=== PATIENT | female | born 1965 | race Caucasian/White ===

== ENCOUNTER 2018-03-03 22:42 | Emergency (ER) | payer OTHER ==
[~2018-03-03] VITALS: Ht 157.5 cm; Wt 81.6 kg
[~2018-03-03 22:42] MED LIST: AMIT50TA PO; EFAV1TAB PO
[2018-03-03 23:33] LABS: BILIRUBIN,URINE NEGATIVE (NEG); CLARITY,URINE CLEAR; COLOR,URINE YELLOW; NITRITE,URINE NEGATIVE (NEG); PH,URINE 6.5; PROTEIN,URINE NEGATIVE (NEG-TRACE); UROBILINOGEN,URINE 0.2 mg/dL (0.2 mg/dL)
[2018-03-03 23:38] LABS: BACTERIA,URINE FEW /HPF (0-FEW); RBC,URINE RARE /HPF (0-2); SQUAMOUS EPITHELIAL CELL,UR MOD /LPF
[2018-03-03 23:38] LABS: BASO # 0.1 x10^3/uL (0.0-0.2); BASO % 1 % (0-3); EOS # 0.2 x10^3/uL (0.0-0.7); EOS % 2 % (0-3); HEMATOCRIT 39.7 % (36.0-47.0); LYMPH # 3.5 x10^3/uL (1.0-4.8); LYMPH % 39 % (24-48); MEAN CORPUSCULAR HEMOGLOBIN 34 pg (25-35); MEAN CORPUSCULAR HGB CONC 35 g/dL (31-37); MEAN CORPUSCULAR VOLUME 96 fL (79-100); MONO # 0.8 x10^3/uL (0.0-1.1); MONO % 9 % (0-9); NEUT # 4.3 x10^3uL (1.8-7.7); NEUT % 49 % (31-73); PLATELET COUNT 228 x10^3/uL (140-400); RED BLOOD COUNT 4.15 x10^6/uL (3.50-5.40); RED CELL DISTRIBUTION WIDTH 13.8 % (11.5-14.5); WHITE BLOOD COUNT 8.9 x10^3/uL (4.0-11.0)
[2018-03-03 23:45] LABS: CALCIUM 9.2 mg/dL (8.5-10.1); CREATININE 1.2 mg/dL (0.6-1.0); GFR 47.2; POTASSIUM 3.6 mmol/L (3.5-5.1)
[2018-03-03] MEDS ORDERED: ONDANSETRON PF 4 MG/2 ML VIAL. IV ONE (23:45)
[2018-03-03] MEDS ORDERED: CONTRAST GIVEN. MC PRN (23:45)
[2018-03-03] MEDS ORDERED: IV NORMAL SALINE 1000ML BAG 1,000 ML IV ONE (23:45)
[2018-03-03] MEDS ORDERED: MORPHINE SULFATE 4 MG/ML VIAL. IV ONE (23:45)
[2018-03-03 23:52] LABS: ALBUMIN 3.9 g/dL (3.4-5.0); ALBUMIN/GLOBULIN RATIO 1.1 (1.0-1.7); TOTAL BILIRUBIN 0.6 mg/dL (0.2-1.0); TOTAL PROTEIN 7.5 g/dL (6.4-8.2)
--- NOTE | 2018-03-04 00:26 | RAD ---
CT abdomen and pelvis with contrast HISTORY: Right lower quadrant abdominal pain. TECHNIQUE: Helical CT imaging of the abdomen and pelvis with 60 mL Omnipaque 300 intravenous contrast. Abdomen findings: Mild linear atelectasis at the lung bases. Lower lumbar disc bulges and osteophytes with spinal canal and neural foraminal stenoses. L1 vertebral body hemangioma. Dilation of the bile ducts the proximal common bile duct diameter 13 mm with mild tapering distally, this most likely is related to cholecystectomy. Liver, kidneys, adrenals, pancreas and spleen are unremarkable. Liver, spleen, kidneys, adrenal glands, pancreas are unremarkable. Moderate volume of stool. No bowel obstruction. The appendix is negative. No abdominal fluid or adenopathy. Pelvis findings: Hysterectomy. Bilateral adnexal cystic lesions the largest is oblong on the right measuring 4 cm. No pelvic fluid or adenopathy. The bladder wall is subjectively mildly thickened for its degree of distention. Rectum and bones are unremarkable. IMPRESSION: 1. Mild bladder wall thickening could be muscular hypertrophy or mild imaging changes of inflammation from cystitis. 2. The appendix is negative. 3. Bilateral adnexal cystic lesions largest on the right measuring 4 cm. These could be further assessed by outpatient pelvic sonography. 4. Mild bile duct dilation likely related to cholecystectomy. Exposure: One or more of the following individualized dose reduction techniques were utilized for this examination: 1. Automated exposure control 2. Adjustment of the mA and/or kV according to patient size 3. Use of iterative reconstruction technique Electronically signed by: Mati Ag MD (03/04/2018 12:23 AM) [facility]
[2018-03-04] MEDS ORDERED: IOHEXOL 300 MG/ML 100ML VIAL. IV ONE (00:30)
[2018-03-04] MEDS ORDERED: NITR100C62 PO (00:38)
--- NOTE | 2018-03-04 00:48 | PHYS DOC ---
Past Medical History Past Medical History: HIV, Hypertension, Migraines Past Surgical History: Cholecystectomy, Hysterectomy, Tonsillectomy, Other Additional Past Surgical Histo: RIGHT SHOULDER 08/2016 Additional Information: STOPPED X1 MO Alcohol Use: Rarely Drug Use: None Adult General Chief Complaint Chief Complaint: ABDOMINAL PAIN HPI HPI Patient is a 52 year old female presenting with right lower abdominal pain described as burning and sharp comes and goes feels it also in the right groin area. She thinks it is worse with particular types of movement. No fever sometimes has nausea no dysuria no back pain she has HIV but her CD4 count last one was 1000 she takes antiretroviral therapy. Review of Systems Review of Systems Constitutional: Denies fever or chills [] Eyes: Denies change in visual acuity, redness, or eye pain [] HENT: Denies nasal congestion or sore throat [] Respiratory: Denies cough or shortness of breath [] Musculoskeletal: Denies back pain or joint pain [] Integument: Denies rash or skin lesions [] Neurologic: Denies headache, focal weakness or sensory changes [] Endocrine: Denies polyuria or polydipsia [] All other systems were reviewed and found to be within normal limits, except as documented in this note. Current Medications Current Medications Current Medications Medications (Trade) Dose Ordered Sig/Donal Start Time Stop Time Status Last Admin Dose Admin Info (CONTRAST GIVEN -- Rx MONITORING) 1 each PRN DAILY PRN 03/03/18 23:45 03/05/18 23:44 Iohexol (Omnipaque 300 Mg/ml) 75 ml 1X ONCE 03/04/18 00:30 03/04/18 00:31 DC 03/04/18 00:05 60 ML Morphine Sulfate (Morphine Sulfate) 4 mg 1X ONCE 03/03/18 23:45 03/03/18 23:46 DC 03/03/18 23:47 4 MG Ondansetron HCl (Zofran) 4 mg 1X ONCE 03/03/18 23:45 03/03/18 23:46 DC 03/03/18 23:45 4 MG Sodium Chloride 1,000 ml @ 1,000 mls/hr 1X ONCE 03/03/18 23:45 03/04/18 00:44 DC 03/03/18 23:45 1,000 MLS/HR Allergies Allergies Allergies Coded Allergies Type Severity Reaction Last Updated Verified Penicillins Allergy Intermediate 07/12/14 No Sulfa (Sulfonamide Antibiotics) Allergy Intermediate 07/12/14 No Tetracyclines Allergy Intermediate Hives 06/23/15 Yes doxycycline Allergy Intermediate Hives 06/23/15 Yes levofloxacin Adverse Reaction Intermediate Nausea and Vomiting 06/23/15 Yes Physical Exam Physical Exam Constitutional: Well developed, well nourished, no acute distress, non-toxic appearance. [] HENT: Normocephalic, atraumatic, bilateral external ears normal, oropharynx moist, no oral exudates, nose normal. [] Eyes: PERRLA, EOMI, conjunctiva normal, no discharge. [] Neck: Normal range of motion, no tenderness, supple, no stridor. [] Pulmonary: Normal respiratory effort no increased work of breathing no obvious chest wall trauma Abdomen: Bowel sounds normal, soft, right lower quadrant and also right inguinal region tenderness, no masses, no pulsatile masses. [] Skin: Warm, dry, no erythema, no rash. [] Back: No tenderness, no CVA tenderness. [] Extremities: No tenderness, no cyanosis, no clubbing, ROM intact, no edema. [] Neurologic: Alert and oriented X 3, normal motor function, normal sensory function, no focal deficits noted. [] Psychologic: Affect normal, judgement normal, mood normal. [] Current Patient Data Vital Signs Vital Signs Date Time Temp Pulse Resp B/P (MAP) Pulse Ox O2 Delivery O2 Flow Rate FiO2 03/03/18 23:47 18 95 03/03/18 22:50 98.1 99 127/77 (94) Room Air 98.1 Lab Values Laboratory Tests Test 03/03/18 23:13 03/03/18 23:16 Urine Collection Type Unknown Urine Color Yellow Urine Clarity Clear Urine pH 6.5 Urine Specific Earth 1.020 Urine Protein Negative mg/dL (NEG-TRACE) Urine Glucose (UA) Negative mg/dL (NEG) Urine Ketones (Stick) Negative mg/dL (NEG) Urine Blood Negative (NEG) Urine Nitrite Negative (NEG) Urine Bilirubin Negative (NEG) Urine Urobilinogen Dipstick 0.2 mg/dL (0.2 mg/dL) Urine Leukocyte Esterase Trace (NEG) Urine RBC Rare /HPF (0-2) Urine WBC 1-4 /HPF (0-4) Urine Squamous Epithelial Cells Mod /LPF Urine Bacteria Few /HPF (0-FEW) Urine Mucus Mod /LPF White Blood Count 8.9 x10^3/uL (4.0-11.0) Red Blood Count 4.15 x10^6/uL (3.50-5.40) Hemoglobin 14.0 g/dL (12.0-15.5) Hematocrit 39.7 % (36.0-47.0) Mean Corpuscular Volume 96 fL (79-100) Mean Corpuscular Hemoglobin 34 pg (25-35) Mean Corpuscular Hemoglobin Concent 35 g/dL (31-37) Red Cell Distribution Width 13.8 % (11.5-14.5) Platelet Count 228 x10^3/uL (140-400) Neutrophils (%) (Auto) 49 % (31-73) Lymphocytes (%) (Auto) 39 % (24-48) Monocytes (%) (Auto) 9 % (0-9) Eosinophils (%) (Auto) 2 % (0-3) Basophils (%) (Auto) 1 % (0-3) Neutrophils # (Auto) 4.3 x10^3uL (1.8-7.7) Lymphocytes # (Auto) 3.5 x10^3/uL (1.0-4.8) Monocytes # (Auto) 0.8 x10^3/uL (0.0-1.1) Eosinophils # (Auto) 0.2 x10^3/uL (0.0-0.7) Basophils # (Auto) 0.1 x10^3/uL (0.0-0.2) Sodium Level 139 mmol/L (136-145) Potassium Level 3.6 mmol/L (3.5-5.1) Chloride Level 100 mmol/L (98-107) Carbon Dioxide Level 30 mmol/L (21-32) Anion Gap 9 (6-14) Blood Urea Nitrogen 14 mg/dL (7-20) Creatinine 1.2 mg/dL (0.6-1.0) H Estimated GFR (Cockcroft-Gault) 47.2 BUN/Creatinine Ratio 12 (6-20) Glucose Level 103 mg/dL (70-99) H Calcium Level 9.2 mg/dL (8.5-10.1) Total Bilirubin 0.6 mg/dL (0.2-1.0) Aspartate Amino Transferase (AST) 27 U/L (15-37) Alanine Aminotransferase (ALT) 53 U/L (14-59) Alkaline Phosphatase 114 U/L (46-116) Total Protein 7.5 g/dL (6.4-8.2) Albumin 3.9 g/dL (3.4-5.0) Albumin/Globulin Ratio 1.1 (1.0-1.7) Lipase 85 U/L (73-393) Laboratory Tests 03/03/18 23:16 Laboratory Tests 03/03/18 23:16 EKG EKG [] Radiology/Procedures Radiology/Procedures [] Impressions: IMPRESSION: 1. Mild bladder wall thickening could be muscular hypertrophy or mild imaging changes of inflammation from cystitis. 2. The appendix is negative. 3. Bilateral adnexal cystic lesions largest on the right measuring 4 cm. These could be further assessed by outpatient pelvic sonography. 4. Mild bile duct dilation likely related to cholecystectomy. Exposure: One or more of the following individualized dose reduction techniques were utilized for this examination: 1. Automated exposure control 2. Adjustment of the mA and/or kV according to patient size 3. Use of iterative reconstruction technique Electronically signed by: Mati Ag MD (03/04/2018 12:23 AM) [facility] DICTATED and SIGNED BY: MATI AG MD DATE: 03/04/18 001 Course & Med Decision Making Course & Med Decision Making Pertinent Labs and Imaging studies reviewed. (See chart for details) []52-year-old female history of HIV on antiretroviral therapy presenting with right lower quadrant abdominal pain for the last couple of days there was some tenderness around the McBurney's point the CT scan was normal no appendicitis. Urinalysis was really not that impressive but CT scan showed possible findings of cystitis so given her history we will give her prescription for antibiotics Macrobid was given given her allergic profile. Patient is able to range the hip and is neuro intact I don't think that there is any acute musculoskeletal emergency going on. Dragon Disclaimer Dragon Disclaimer This electronic medical record was generated, in whole or in part, using a voice recognition dictation system. Departure Departure Impression: Primary Impression: Cystitis Disposition: 01 HOME, SELF-CARE Condition: STABLE Patient Instructions: Urinary Tract Infection, [id number] Scripts Nitrofurantoin Monohyd/M-Cryst (MACROBID 100 MG CAPSULE) 100 Mg Capsule 1 CAP PO BID, #14 CAP Prov: ERICK MALIK MD 03/04/18 ERICK MALIK MD Mar 04, 2018 00:48
[2018-03-04 01:42] VITALS: BP 105/56
[2018-03-04] MEDS ORDERED: IOHEXOL 300 MG/ML 100ML VIAL. ONE (04:32)
== END 2018-03-04 01:47 | disposition home or self-care (01) ==
LOC: ER 22:42
DX: N30.90 Cystitis, unspecified without hematuria (principal); G43.909 Migraine, unspecified, not intractable, without status migrainosus; I10 Essential (primary) hypertension; Z90.49 Acquired absence of other specified parts of digestive tract; Z90.89 Acquired absence of other organs; Z88.0 Allergy status to penicillin; Z88.2 Allergy status to sulfonamides; Z88.1 Allergy status to other antibiotic agents
CPT/HCPCS: 36415; 74177; 80053; 81001; 83690; 85025; 87086; 96374; 96375; 99285; J2270; J2405; J7030; Q9967

== ENCOUNTER 2018-09-08 21:16 | Emergency (ER) | payer BC, OTHER ==
[~2018-09-08] VITALS: Ht 162.6 cm; Wt 81.6 kg
[~2018-09-08 21:16] MED LIST changes: +NITR100C62 PO
[2018-09-08 21:20] VITALS: BP 158/94
[2018-09-08] MEDS ORDERED: DIPHTH,PERTUSS(ACELL),TET TOX 0.5 ML DISP.SYRIN. VAX IM ONE (22:45)
--- NOTE | 2018-09-08 22:45 | PHYS DOC ---
Past Medical History Past Medical History: HIV, Hypertension, Migraines (RAMESH ASH APRN) Past Surgical History: Cholecystectomy, Hysterectomy, Tonsillectomy, Other Additional Past Surgical Histo: RIGHT SHOULDER 08/2016 (RAMESH ASH APRN) Alcohol Use: Rarely Drug Use: None (RAMESH ASH APRN) Adult General Chief Complaint Chief Complaint: LACERATION/AVULSION HPI HPI Patient is a 52 year old female who presents to the emergency department with complaints of a laceration to the midportion of her left cortés. Patient states she was opening the oven door when she dropped it and it scratched the front of her left cortés. She denies any numbness, tingling, or weakness of the affected extremity. She is unsure of when her last tetanus immunization was. Currently she denies any pain (RAMESH ASH APRN) Review of Systems Review of Systems Constitutional: Denies fever or chills [] Musculoskeletal: Denies back pain or joint pain [] Integument: Denies rash; see history of present illness Neurologic: Denies focal weakness or sensory changes [] (RAMESH ASH APRN) Current Medications Current Medications Current Medications Medications (Trade) Dose Ordered Sig/Donal Start Time Stop Time Status Last Admin Dose Admin Diphtheria/ Tetanus/Acell Pertussis (Boostrix) 0.5 ml ONCE ONCE 09/08/18 22:45 09/08/18 22:46 DC 09/08/18 23:11 0.5 ML (ERICK MALIK MD) Allergies Allergies Allergies Coded Allergies Type Severity Reaction Last Updated Verified Penicillins Allergy Intermediate 07/12/14 No Sulfa (Sulfonamide Antibiotics) Allergy Intermediate 07/12/14 No Tetracyclines Allergy Intermediate Hives 06/23/15 Yes doxycycline Allergy Intermediate Hives 06/23/15 Yes levofloxacin Adverse Reaction Intermediate Nausea and Vomiting 06/23/15 Yes (ERICK MALIK MD) Physical Exam Physical Exam Constitutional: Well developed, well nourished, no acute distress, non-toxic appearance. [] HENT: Normocephalic, atraumatic, bilateral external ears normal, nose normal. [ ] Eyes: conjunctiva normal, no discharge. [] Neck: Normal range of motion, no stridor. [] Lungs & Thorax: Respirations even and unlabored Skin: Warm, dry, no erythema, no rash; 7 cm avulsion/laceration noted to anterior aspect of left lower leg, no active bleeding. [] Extremities: No tenderness, no cyanosis, ROM intact, no edema. [] Neurologic: Alert and oriented X 3, normal motor function, normal sensory function, no focal deficits noted. [] Psychologic: Affect normal, judgement normal, mood normal. [] (RAMESH ASH APRN) Current Patient Data Vital Signs Vital Signs Date Time Temp Pulse Resp B/P (MAP) Pulse Ox O2 Delivery O2 Flow Rate FiO2 09/08/18 21:20 97.9 95 18 158/94 (115) 97 Room Air 97.9 (ERICK MALIK MD) EKG EKG [] (RAMESH ASH APRN) Radiology/Procedures Radiology/Procedures Avulsion/Laceration Repair by me: Location: Anterior left lower leg Tendon/Joint/Nerves: No injury Foreign body: None detected after copious irrigation and exploration, wound is noted to be superficial Technique: Dermabond skin adhesive to superior portion of wound Complexity: No subcutaneous sutures/mucosal repair/edge excision Post Closure Length: 7 cm Patient's bleeding was easily controlled in the department and there is no indication of anemia. No evidence of compartment syndrome, neurologic injury, vascular injury, open joint, tendon laceration, or foreign body. Patient is appropriate for outpatient follow up. (RAMESH ASH APRN) Course & Med Decision Making Course & Med Decision Making Pertinent Labs and Imaging studies reviewed. (See chart for details) dx: Avulsion left lower extremity, need for tetanus immunization The patient's avulsion/laceration was cleansed with surgical scrub and normal saline. The wound was noted to be superficial and more of an avulsion versus laceration. Dermabond was used to close the superior portion of the avulsion. A dressing was applied by nursing staff. Patient was given instructions on how to care for the avulsion. Follow-up with primary care doctor if symptoms persist, return to ER if symptoms worsen.Patient verbalized an understanding of home care , medications, follow-up, and return to ED instructions and was in agreement with the plan of care. [] (RAMESH ASH APRN) Course & Med Decision Making Staff Physician Addendum: I was working in the ER during the course of this patient's visit. I was available for consultation as needed, but I was not directly involved in the care of this patient. (ERICK MALIK MD) Dragon Disclaimer Dragon Disclaimer This electronic medical record was generated, in whole or in part, using a voice recognition dictation system. (RAMESH ASH APRN) Departure Departure Impression: Primary Impression: Avulsion of skin of left lower leg Additional Impression: Need for DTaP vaccination Disposition: 01 HOME, SELF-CARE Condition: STABLE Referrals: UNKNOWN PCP NAME (PCP) Patient Instructions: Deep Skin Avulsion, Tissue Adhesive Wound Care, Easy-to- Read Additional Instructions: Keep area clean and dry. May apply antibiotic ointment to area if needed. Watch for redness, warmth, or drainage. Follow up with your primary care doctor if symptoms persist, return to the ER if symptoms worsen. Tylenol or ibuprofen as needed for pain. Problem Qualifiers Primary Impression: Avulsion of skin of left lower leg Encounter type: initial encounter Qualified Codes: S81.802A - Unspecified open wound, left lower leg, initial encounter RAMESH ASH APRN Sep 08, 2018 22:45 ERICK MALIK MD Sep 14, 2018 06:37
== END 2018-09-08 23:52 | disposition home or self-care (01) ==
LOC: ER 21:16
DX: S81.812A Laceration without foreign body, left lower leg, initial encounter (principal); I10 Essential (primary) hypertension; G43.909 Migraine, unspecified, not intractable, without status migrainosus; Z90.49 Acquired absence of other specified parts of digestive tract; Z90.710 Acquired absence of both cervix and uterus; Z90.89 Acquired absence of other organs; Z88.0 Allergy status to penicillin; Z88.2 Allergy status to sulfonamides; Z88.1 Allergy status to other antibiotic agents; W20.8XXA Other cause of strike by thrown, projected or falling object, initial encounter; Y93.89 Activity, other specified; Y92.89 Other specified places as the place of occurrence of the external cause; Y99.8 Other external cause status
CPT/HCPCS: 12002; 90471; 90715; 99283

== ENCOUNTER 2021-07-24 19:31 | Emergency (ER) | payer BC ==
[~2021-07-24] VITALS: Ht 157.5 cm; Wt 86.3 kg
[2021-07-24 21:13] VITALS: BP 141/87
[2021-07-24] MEDS ORDERED: ORPH100T PO (21:42)
--- NOTE | 2021-07-24 21:43 | PHYS DOC ---
Past Medical History Past Medical History: HIV, Hypertension, Migraines Past Surgical History: Cholecystectomy, Hysterectomy, Tonsillectomy, Other Additional Past Surgical Histo: RIGHT SHOULDER 08/2016 Smoking Status: Former Smoker Alcohol Use: Rarely Drug Use: None General Adult EDM: Chief Complaint: BACK PAIN OR INJURY HPI: HPI: Patient is a 55 year old female who presents with acute back pain onset prior to arrival at work. Patient states she was helping to lift 100 pound propane tanks that she had helped refill when her pain started. She denies history of chronic back pain. She denies trauma, saddle anesthesia, bowel or bladder incontinence, IV drug use, paresthesias. Review of Systems: Review of Systems: 12 system ROS negative or noncontributory except as mentioned in HPI. Heart Score: C/O Chest Pain: No Allergies: Allergies: Allergies Coded Allergies Type Severity Reaction Last Updated Verified Penicillins Allergy Intermediate 07/12/14 No Sulfa (Sulfonamide Antibiotics) Allergy Intermediate 07/12/14 No Tetracyclines Allergy Intermediate Hives 06/23/15 Yes doxycycline Allergy Intermediate Hives 06/23/15 Yes levofloxacin Adverse Reaction Intermediate Nausea and Vomiting 06/23/15 Yes Physical Exam: PE: Constitutional: Well developed, well nourished, no acute distress, non-toxic appearance, patient obviously in pain. Neck: Normal range of motion, no stridor. Skin: Warm, dry, no erythema, no rash. Back: No step-off, no midline tenderness, bilateral lumbar paraspinal tenderness and spasm appreciated. Extremities: No tenderness, no cyanosis, no clubbing, ROM intact, no edema. Neurologic: Alert and oriented x4, symmetrical gait, bilateral great toe dorsiflexion 5/5, no focal deficits noted. Current Patient Data: Vital Signs: Vital Signs Date Time Temp Pulse Resp B/P (MAP) Pulse Ox O2 Delivery O2 Flow Rate FiO2 07/24/21 21:13 97.9 99 20 141/87 (105) 99 Room Air 97.9 Course & Med Decision Making: Course & Med Decision Making Pertinent Labs and Imaging studies reviewed. (See chart for details) Patient is a 55-year-old female who presents with low back pain onset prior to arrival at work after doing some heavy lifting. Patient will be treated here in the department with Toradol and lidocaine patch. As she drove herself to the department today, I cannot provide her with a muscle relaxer here in the department. Discussed with patient, and she is comfortable with prescription that she can brain picker and take when she gets home. Patient was given return precautions. She understands and is agreeable to discharge plan. Desmond Disclaimer: Desmond Disclaimer: This electronic medical record was generated, in whole or in part, using a voice recognition dictation system. Departure Departure Impression: Primary Impression: Strain of lumbar paraspinal muscle Qualified Codes: S39.012A - Strain of muscle, fascia and tendon of lower back, initial encounter Disposition: HOME / SELF CARE / HOMELESS Condition: STABLE Referrals: UNKNOWN PCP NAME (PCP) Patient Instructions: Muscle Strain, [id number] Additional Instructions: EMERGENCY DEPARTMENT GENERAL DISCHARGE INSTRUCTIONS Thank you for coming to [facility] Emergency Department (ED) today and trusting us with you care. We trust that you had a positive experience in our Emergency Department. If you wish to speak to the department management, you may call the director at . YOUR FOLLOW UP INSTRUCTIONS ARE FOLLOWS: 1. Follow up with your primary care doctor. If you do not have a primary doctor, please ask for a resource list of physicians or clinics that may be able to assist you with follow up care. 2. The emergency provider has interpreted your imaging studies, if any were ordered. The radiology net application support specialist also reviewed them. If there is a change in the findings, you will be notified in 48 hours when at all possible. 3. If a lab test or culture has been done, your results will be reviewed and you will be notified if you need a change in treatment. 4. Follow instructions verbalized to you and refer to the printouts if needed. ADDITIONAL INSTRUCTIONS AND INFORMATION: 1. Your care today has been supervised by a physician who is specially trained in emergency care. Many problems require more than one evaluation for a complete diagnosis and treatment. We recommend that you schedule your follow up appointment as recommended to ensure complete treatment of you illness or injury. If you are unable to obtain follow up care and continue to have a probl em, or if your condition worsens, we recommend that you return to the ED. 2. We are not able to safely determine your condition over the phone nor are we able to give sound medical advice over the phone. For these safety reasons, if you call for medical advice we will ask you to come to the ED for further evaluation. 3. If you have any questions regarding these discharge instructions please call the ED at . SAFETY INFORMATION: In the interest of safety, wellness, and injury prevention; we encourage you to wear your seat belt, if you smoke; quite smoking, and we encourage family to use a protective helmet for bicycling and other sporting events that present an increased risk for head injury. IF YOUR SYMPTOMS WORSEN OR NEW SYMPTOMS DEVELOP, OR YOU HAVE CONCERNS ABOUT YOUR CONDITION; OR IF YOUR CONDITION WORSENS WHILE YOU ARE WAITING FOR YOUR FOLLOW UP APPOINTMENT; EITHER CONTACT YOUR PRIMARY CARE DOCTOR, THE PHYSICIAN WHOSE NAME AND NUMBER YOU WERE GIVEN, OR RETURN TO THE ED IMMEDIATELY. Scripts Orphenadrine Citrate (ORPHENADRINE CITRATE) 100 Mg Tablet.er 1 TAB PO Q12HR, #20 TAB Prov: GARRET VIVEROS 07/24/21 GARRET VIVEROS Jul 24, 2021 21:43
[2021-07-24] MEDS ORDERED: KETOROLAC 60 MG/2 ML VIAL. IM ONE (21:45)
[2021-07-24] MEDS ORDERED: LIDOCAINE (700MG/PATCH) PATCH. TD ONE (21:45)
== END 2021-07-24 22:00 | disposition home or self-care (01) ==
LOC: ER 19:31
DX: S39.012A Strain of muscle, fascia and tendon of lower back, initial encounter (principal); I10 Essential (primary) hypertension; G43.909 Migraine, unspecified, not intractable, without status migrainosus; Z90.49 Acquired absence of other specified parts of digestive tract; Z90.710 Acquired absence of both cervix and uterus; Z88.0 Allergy status to penicillin; Z88.2 Allergy status to sulfonamides; Z88.1 Allergy status to other antibiotic agents; X50.9XXA Other and unspecified overexertion or strenuous movements or postures, initial encounter; Y93.89 Activity, other specified; Y92.89 Other specified places as the place of occurrence of the external cause; Y99.8 Other external cause status
CPT/HCPCS: 96372; 99283; J1885